=== PATIENT | female | born 1975 | race Caucasian/White ===

== ENCOUNTER 2017-03-25 18:08 | Emergency (ER) | payer OTHER ==
[~2017-03-25] VITALS: Ht 172.7 cm; Wt 125.3 kg
[~2017-03-25 18:08] MED LIST: ATIVAN1 MG PO; CARAFATE1 GM PO; CARTIA XT180 MG PO; ELAVIL50 MG PO; FLEXERIL10 MG PO; IMITREX50 MG PO; MULTIVITAMIN1 EAC2 PO; NUVARING VAGIN1 EACH VG; PREVACID15 MG PO; PREVACID30 MG PO; PROZAC40 MG PO; TYLENOL REGULA325 MG PO; ZOFRAN4 MG PO
[2017-03-25 18:29] LABS: HEMATOCRIT 36.5 % (36.0-46.0); MCH 28.9 PG (29.0-34.0); MCHC 32.9 G/DL (30.0-36.0); PLATELET COUNT 384 K/uL (156-360); RBC DIS.WIDTH-CV 14.5 % (11.8-14.6); RBC DIS.WIDTH-SD 46.7 % (39-53); RED BLOOD COUNT 4.15 M/uL (3.80-5.20); WHITE BLOOD COUNT 11.9 K/uL (4.1-10.2)
[2017-03-25 18:40] LABS: ALBUMIN 4.3 g/dL (3.2-4.8); CHLORIDE 102 mEq/L (99-109); POTASSIUM 3.1 mEq/L (3.7-5.4); SODIUM 136 mEq/L (136-147)
[2017-03-25 18:42] LABS: GLUCOSE 127 mg/dL (70-99); TOTAL PROTEIN 7.1 g/dL (6.4-8.3)
[2017-03-25 18:44] LABS: TOTAL BILIRUBIN 0.9 mg/dL (0.0-1.0)
[2017-03-25 18:46] LABS: ALKALINE PHOSPHATASE 143 IU/L (3-129); CREATININE 0.8 mg/dL (0.6-1.3); GFR ESTIMATE (CALCULATED) > 59 mL/min/
[2017-03-25 18:47] LABS: UREA NITROGEN (BUN) 11 mg/dL (9-23)
[2017-03-25 18:48] LABS: AST (GOT) 248 IU/L (2-34)
[2017-03-25 18:49] LABS: ALT (GPT) 140 IU/L (3-49); LIPASE 56 U/L (1.0-51.0)
[2017-03-25 19:01] LABS: QUANTITATIVE HCG < 4.0 MIU/ML
[2017-03-25 20:19] LABS: APPEARANCE CLEAR ((CLEAR)); BILIRUBIN NEGATIVE; BLOOD SMALL; COLOR YELLOW ((YELLOW)); GLUCOSE (STRIP) NEGATIVE; KETONES NEGATIVE; LEUKOCYTES NEGATIVE; NITRITE NEGATIVE; PROTEIN (STRIP) NEGATIVE; SPECIFIC GRAVITY 1.013 (1.000-1.030); UROBILINOGEN 0.2 MG/DL (0.2-1.0)
[2017-03-25 20:24] LABS: BACTERIA NONE SEEN /HPF; EPITHELIAL CELLS RARE /HPF; MUCUS TRACE /LPF; UCUL ADDED? NO; WHITE BLOOD CELLS 0-5 /HPF (0-5)
[2017-03-25] MEDS ORDERED: ZOFRAN ODT8 MG PO (21:38)
[2017-03-25] MEDS ORDERED: BENTYL20 MG PO (21:38)
[2017-03-25] MEDS ORDERED: COMPAZINE25 M1 PR (22:01)
[2017-03-25 22:23] VITALS: BP 119/72
== END 2017-03-25 22:23 | disposition home or self-care (01) ==
LOC: EME 18:08
DX: R10.31 Right lower quadrant pain (principal); I10 Essential (primary) hypertension; M79.7 Fibromyalgia; Z98.84 Bariatric surgery status; Z90.49 Acquired absence of other specified parts of digestive tract; Z88.8 Allergy status to other drugs, medicaments and biological substances
CPT/HCPCS: 74177; 80053; 81003; 83690; 84702; 85027; 99281; 99284; J0780; J2270; J7040